=== PATIENT | male | born 1990 | race Two or more races ===

== ENCOUNTER 2020-04-02 10:43 | Emergency (ER) | payer OTHER ==
[2020-04-02 10:56] VITALS: BP 122/75; PULSE 77; RESP 18; TEMP 98.6
--- NOTE | 2020-04-02 11:36 | ED ---
Skin/Abscess/FB HPI - General Chief complaint: Skin/Abscess/Foreign Body Stated complaint: Sent by [facility] Time Seen by Provider: 04/02/20 10:57 Source: patient, RN notes reviewed Mode of arrival: ambulatory Limitations: no limitations - History of Present Illness Initial comments: 29-year-old male presents emergency Department chief complaint right calf, leg swelling and redness. Patient states that he was bit by a bug on Tuesday states that he woke up the next day were some itchiness and swelling. Patient states that swelling has slightly worsened it was seen at urgent care was sent here to rule out DVT. He denies any chest or shortness breath. He did admit that he drove [place] a few days ago. Patient denies fever or chills nausea vomiting. - Related Data Previous Rx's Medication Instructions Recorded Cephalexin [Keflex] 500 mg PO Q6HR #40 cap 04/02/20 Allergies Allergy/AdvReac Type Severity Reaction Status Date / Time No Known Allergies Allergy Verified 04/02/20 10:50 Review of Systems ROS Statement: Those systems with pertinent positive or pertinent negative responses have been documented in the HPI. ROS Other: All systems not noted in ROS Statement are negative. Past Medical History Past Medical History: No Reported History History of Any Multi-Drug Resistant Organisms: None Reported Past Surgical History: No Surgical Hx Reported Past Psychological History: No Psychological Hx Reported Smoking Status: Never smoker Past Alcohol Use History: None Reported Past Drug Use History: None Reported General Exam Limitations: no limitations General appearance: alert, in no apparent distress Head exam: Present: atraumatic, normocephalic, normal inspection Eye exam: Present: normal appearance, PERRL, EOMI. Absent: scleral icterus, conjunctival injection, periorbital swelling Respiratory exam: Present: normal lung sounds bilaterally. Absent: respiratory distress, wheezes, rales, rhonchi, stridor Cardiovascular Exam: Present: regular rate, normal rhythm, normal heart sounds. Absent: systolic murmur, diastolic murmur, rubs, gallop, clicks Extremities exam: Present: other (Right lower extremity calf region there is moderate swelling, tenderness of palpation, tenderness with palpation pulses are equal bilaterally there is a small punctate lesion or or insect bite noted.) Neurological exam: Present: alert, oriented X3 Skin exam: Present: warm, dry, intact, normal color. Absent: rash Course Vital Signs 04/02/20 10:50 Temperature 98.6 F Pulse Rate 77 Respiratory 18 Rate Blood Pressure 122/75 O2 Sat by Pulse 100 Oximetry Medical Decision Making - Medical Decision Making Ultrasound was negative for acute DVT. Patient has evidence of cellulitis right lower extremity there is concern for possible ALLERGIC aspect. Patient will take Benadryl will continue on antibiotics as directed and return for any worsening symptoms. Disposition Clinical Impression: Cellulitis of right leg Disposition: HOME SELF-CARE Condition: Stable Instructions (If sedation given, give patient instructions): Cellulitis (ED) Additional Instructions: Please return to the Emergency Department if symptoms worsen or any other concerns. Prescriptions: Cephalexin [Keflex] 500 mg PO Q6HR #40 cap Is patient prescribed a controlled substance at d/c from ED?: No Referrals: Nonstaff,Physician [Primary Care Provider] - 1-2 days Time of Disposition: 12:46
--- NOTE | 2020-04-02 12:34 | US ---
EXAMINATION TYPE: US venous doppler duplex LE RT DATE OF EXAM: 04/02/2020 11:28 AM COMPARISON: NONE CLINICAL HISTORY: pain. SIDE PERFORMED: Right TECHNIQUE: The lower extremity deep venous system is examined utilizing real time linear array sonog jermain with graded compression, doppler sonography and color-flow sonography. VESSELS IMAGED: External Iliac Vein (EIV) Common Femoral Vein Deep Femoral Vein Greater Saphenous Vein * Femoral Vein Popliteal Vein Small Saphenous Vein * Proximal Calf Veins (* superficial vessels) Right Leg: Negative for DVT IMPRESSION: No evidence for DVT at this time.
== END 2020-04-02 13:02 | disposition home or self-care (01) ==
LOC: EC 10:43
DX: L03.115 Cellulitis of right lower limb (principal)
CPT/HCPCS: 99283